=== PATIENT | male | born 1975 | race Caucasian/White ===

== ENCOUNTER 2016-08-20 09:27 | Emergency (ER) | payer BC ==
--- NOTE | ~2016-08-20 | CT4 ---
[facility] A Service [facility] RADIOLOGY TEXT RESULTS PATIENT: PETEY SPEAR LOCATION: SED : 75 UNIT #: [id number] AGE: [address]: Alex Baez MD SEX: M ORDER DR: [id number] [place] [id number] MR#: [id number] #: [id number] NAME: PETEY SPEAR : 1975 SEX: M STUDY DATE/TIME: 08/20/2016 UNIT: SED ROOM: STUDY DESCRIPTION: CT Abd and Pelv Wo Cont Attending Physician: Alex Baez M.D. Ordering Physician: Alex Baez M.D. Primary Care Physician: Primary Care Physician No MEDICAL IMAGING REPORT This report is preliminary unless electronic signature is present. EXAM CT abdomen and pelvis without contrast 08/20/2016 10:10 hours HISTORY 40-year-old complaining of low back pain radiating to left groin for 2 days. History of chronic back pain. COMPARISON CT abdomen 11/10/2015 TECHNIQUE Helical noncontrasted images were obtained from the lung bases through the pubic symphysis. Sagittal and coronal reconstructions were performed. Total exam DLP mGy-cm The CT exam was performed with one or more of the following radiation dose reduction techniques: automatic exposure control, adjustment of mA and/or kV according to patient size, and iterative reconstruction. FINDINGS Images through the lung bases demonstrate minimal dependent horizontal linear density at both bases similar to prior study likely atelectasis or fibrotic scar. There is no acute pulmonary density or pleural effusion. Noncontrasted images through the abdomen demonstrate a normal appearance to the liver, spleen, pancreas. There is a single tiny stone in the gallbladder. There is no gallbladder wall thickening. The adrenal glands and kidneys are normal. There is no ureterectasis or ureteral calculus. The bladder is normal. The prostate is within normal limits for size with coarse calcifications centrally. The stomach is contracted. No small bowel distension or small bowel wall [facility] A Service of [facility] RADIOLOGY TEXT RESULTS PATIENT: PETEY SPEAR LOCATION: [facility] [place] : 75 UNIT #: [id number] AGE: [address]: Alex Baez MD SEX: M ORDER DR: thickening. The terminal ileum is normal. There is no evidence of appendicitis. There is no colonic distension or colonic wall thickening. Bone window images demonstrate no acute lesions. There is no significant disc height loss or spurring. No malalignment or fracture. IMPRESSION. 1. A single gallstone is present in the gallbladder without evidence of acute inflammation or cholecystitis. 2. No renal or ureteral calculi. Previous distal right ureteral stone seen on 11/10/2015 has resolved. 3. No small bowel or colonic abnormalities. 4. Normal appearance to the lumbar spine. Dictated by... Leticia Ceron M.D. THIS IS AN ELECTRONICALLY VERIFIED REPORT Leticia Ceron M.D. at 08/20/2016 6:58 PM SMM/tiarra TD: 08/20/2016 14:49 JOB #: [id number] MEDICAL IMAGING REPORT
[~2016-08-20 09:27] MED LIST: ALEVE220 M1 PO; CIPRO PO; FLEXERIL10 MG PO; FLOMAX0.4 M1 PO; NORCO 10-325 TA1 TAB PO
[2016-08-20 09:42] LABS: BASOPHIL# 0.1 X10e3 (0-0.3); BASOPHIL% 0.7 % (0-2.5); EOSINOPHIL# 0.1 X10e3 (0-0.7); EOSINOPHIL% 0.7 % (0.0-7.0); HEMOGLOBIN 16.5 gm/dL (13.0-16.0); LYMPHOCYTE# 1.5 X10e3 (1.0-3.5); LYMPHOCYTE% 14.3 % (17.0-45.0); MEAN CELL VOLUME 95.2 FL (83-96); MEAN CORPUSCULAR HEMOGLOBIN 32.8 PG (28-34); MEAN CORPUSCULAR HGB CONC 34.5 g/dL (30-36); MEAN PLATELET VOLUME 7.8 FL (6.5-11.5); MONOCYTE# 0.7 X10e3 (0-1.0); MONOCYTE% 6.4 % (3.0-12.0); NEUTROPHIL# 8.3 X10e3 (1.5-7.1); NEUTROPHIL% 77.9 % (40-75); PLATELET COUNT 182 X10e3 (140-420); RED BLOOD COUNT 5.04 X10e (3.90-5.60); RED CELL DISTRIBUTION WIDTH 12.1 % (11.0-15.5); WHITE BLOOD COUNT 10.6 X10e3 (4.0-10.5)
[2016-08-20 09:43] LABS: DIFF IND NO
[2016-08-20 10:01] LABS: ALBUMIN SERUM 4.2 g/dL (3.5-5.0); ALKALINE PHOSPHATASE 48 U/L (32-92); ALT (SGPT) 52 U/L (10-40); AST (SGOT) 133 U/L (10-42); BILIRUBIN, DIRECT 0.1 mg/dL (0.0-0.2); BILIRUBIN,INDIRECT 1.5 mg/dL (0.0-0.9); BILIRUBIN,TOTAL 1.6 mg/dL (0.2-2.0); BLOOD UREA NITROGEN 13 mg/dL (9-23); BUN/CREATININE RATIO 14.44; CALCIUM SERUM 8.5 mg/dL (8.4-10.2); CARBON DIOXIDE 25 mmol/L (22-31); CHLORIDE 99 mmol/L (100-111); CREATININE SERUM 0.9 mg/dL (0.6-1.4); GLOM FILT RATE Estimated ABOVE60 mL/min (>60); GLUCOSE FASTING 99 mg/dL (70-110); LIPASE 34 U/L (22-51); POTASSIUM 3.7 mmol/L (3.5-5.1); PROTEIN TOTAL SERUM 7.2 g/dL (6.0-8.3); SODIUM 130 mmol/L (135-145)
[2016-08-20 10:45] LABS: URINE SOURCE CLEAN CATCH
[2016-08-20 10:47] LABS: URINE APPEARANCE CLEAR; URINE BILIRUBIN NEG (NEG); URINE BLOOD NEG (NEG); URINE COLOR YELLOW; URINE GLUCOSE NEG (NORM); URINE KETONE NEG (NEG); URINE LEUKOCYTE ESTERASE TRACE (NEG); URINE NITRATE NEG (NEG); URINE PROTEIN NEG (NEG); URINE UROBILINOGEN 0.2 MG/DL (NORM)
[2016-08-20 10:48] LABS: MICRO INDICATED? YES
[2016-08-20 10:56] LABS: URINE RBC 0-2 /[HPF] (0-2); URINE WBC 0-2 /[HPF] (0-5)
[2016-08-20 10:57] LABS: CULTURE INDICATED? NO; URINE BACTERIA NEG (NEG)
[2016-08-20] MEDS ORDERED: FLEXERIL10 MG PO (11:15)
[2016-08-20] MEDS ORDERED: VOLTAREN75 MG PO (11:15)
== END 2016-08-20 11:21 | disposition home or self-care (01) ==
LOC: SED 09:27
PROVIDERS: Emergency Medicine
DX: R10.9 Unspecified abdominal pain (principal); F17.200 Nicotine dependence, unspecified, uncomplicated; Z87.442 Personal history of urinary calculi; Z88.5 Allergy status to narcotic agent; Z79.899 Other long term (current) drug therapy
CPT/HCPCS: 36415; 74176; 80048; 80076; 81003; 83690; 85025; 96361; 96374; 99284; J1885